=== PATIENT | female | born 1955 | race Caucasian/White ===

== ENCOUNTER 2018-04-03 11:52 | Emergency (ER) | payer SELFPAY ==
[~2018-04-03] VITALS: Ht 154.9 cm; Wt 63.5 kg
[~2018-04-03 11:52] MED LIST: CITALOPRAM HBR10 MG; CLONAZEPAM0.5 MG; COMBIVENT INH14.7 GM; ESTRIOL; METHOCARBAMOL750 MG; PERCOCET 10-651 EACH; VENTOLIN HFA18 GM
--- OUTSIDE RECORDS SUMMARY | 2018-04-03 11:56 | XMS ---
PreManage Notification: LAWRENCE ORLANDO Security Merchant Police Events No recent Security Events currently on file CRITERIA MET - Group Notification - [facility] - Has Care Guidelines CARE PROVIDERS Primary Care Primary Care Current PHONE: Unknown Isaura has no Care Guidelines for this patient. Care History Medical/Surgical 12/05/2017 [facility] - CHW RECEIVED CASE MANAGEMENT CONSULT- HELP PATIENT WITH SETTING UP WITH A PCP. - PATIENT DOES NOT HAVE A PHONE NUMBER LISTED FOR CONTACT- CHW CALLED THE [facility] CONTACT # AND THE NUMBER IS NOT THE PATIENT CONTACT #. - PATIENT NEEDS TO APPLY FOR MEDICAL BENEFITS, ONCE BENEFITS ARE APPLIED FOR CHW CAN HELP PATIENT SET UP WITH A PCP. - CHW WILL SEND PATIENT A NO PCP LETTER. - IF PATIENT IS SEEN IN THE ED PLEASE CONTACT ONOFRE TO HAVE PATIENT APPLY FOR MEDICAL BENEFITS. AND OR REFER PATIENT TO AN ASSISTER AT [facility]. E.D. VISIT COUNT (12 MO.) 2 [facility] TOTAL 2 NOTE: Visits indicate total known visits. ED/UCC VISIT TRACKING (12 MO.) 04/03/2018 11:52 [facility] [place] TYPE: Emergency COMPLAINT: - ABD/FLANK PAIN 12/04/2017 00:17 [facility] [place] TYPE: Emergency COMPLAINT: - MEDICAL CLEARANCE DIAGNOSES: - Pain in right hip - Other acute postprocedural pain - Nicotine dependence, unspecified, uncomplicated - Homelessness INPATIENT VISIT TRACKING (12 MO.) No inpatient visits to display in this time frame [email or web address]
[2018-04-03] MEDS ORDERED: FLOMAX0.4 MG PO (14:13)
[2018-04-03] MEDS ORDERED: PERCOCET 5-3251 EACH PO (14:14)
== END 2018-04-03 14:45 | disposition home or self-care (01) ==
LOC: ED 11:52
DX: R10.9 Unspecified abdominal pain (principal); J45.909 Unspecified asthma, uncomplicated; F17.200 Nicotine dependence, unspecified, uncomplicated
CPT/HCPCS: 74176; 80053; 81001; 85025; 96374; 99284-25; J1885

== ENCOUNTER 2021-12-30 10:29 | Emergency (ER) | payer MEDICARE ==
[~2021-12-30] VITALS: Ht 154.9 cm; Wt 47.6 kg
[~2021-12-30 10:29] MED LIST changes: +FLOMAX0.4 MG PO; +PERCOCET 5-3251 EACH PO
--- OUTSIDE RECORDS SUMMARY | 2021-12-30 10:39 | XMS ---
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 Isaura has no Care Guidelines for this patient. Care History Medical/Surgical 04/04/2018 [facility] - CHW HAD A LONG DISCUSSION WITH PATIENT- PATIENT STATED HER AND HER BOYFRIEND DO NOT KNOW IF THEY WILL BE STAYING IN THE AREA. THEY CURRENTLY RESIDE AT [facility]. - CHW DISCUSSED THE IMPORTANCE OF FOLLOW UP CARE WITH A PCP AND UROLOGIST DR HERNANDEZ. PATIENT CANCELLED APT WITH UROLOGIST ON 04/05/[address] CONDITIONS. PATIENT STATED SHE WOULD RESCHEDULE NEXT WEEK WHEN THE ROADS ARE BETTER. 12/05/2017 [facility] - CHW RECEIVED CASE MANAGEMENT CONSULT- HELP [...] OR REFER PATIENT TO AN ASSISTER AT [facility]. E.D. VISIT COUNT (12 MO.) 1 [facility] TOTAL 1 NOTE: Visits indicate total known visits. ED/UCC VISIT TRACKING (12 MO.) 12/30/2021 10:31 [facility] [place] TYPE: Emergency COMPLAINT: - ABNORMAL LABS INPATIENT VISIT TRACKING (12 MO.) No inpatient visits to display in this time frame [id number]
[2021-12-30] MEDS ORDERED: COMBIVENT RESPIM4 GM INH (10:55)
[2021-12-30] MEDS ORDERED: LOSARTAN POTASS25 MG PO (10:55)
[2021-12-30] MEDS ORDERED: FERRETTS18 MG PO (14:31)
== END 2021-12-30 14:52 | disposition home or self-care (01) ==
LOC: ED 10:29
DX: D64.9 Anemia, unspecified (principal); R63.4 Abnormal weight loss; J45.909 Unspecified asthma, uncomplicated; F17.200 Nicotine dependence, unspecified, uncomplicated; Z79.899 Other long term (current) drug therapy
CPT/HCPCS: 36415; 74177; 80053; 85025; 86850; 86900; 86901; 99284-25; 99406; Q9967

== ENCOUNTER 2022-05-06 15:29 | Emergency (ER) | payer MEDICARE ==
[~2022-05-06] VITALS: Ht 154.9 cm; Wt 41.1 kg
[~2022-05-06 15:29] MED LIST changes: +COMBIVENT RESPIM4 GM INH; +FERRETTS18 MG PO; +LOSARTAN POTASS25 MG PO
--- OUTSIDE RECORDS SUMMARY | 2022-05-06 15:37 | XMS ---
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 Isaura has no Care Guidelines for this patient. Care History Medical/Surgical 04/04/2018 [facility] - CHW HAD A LONG DISCUSSION WITH PATIENT- PATIENT STATED HER AND HER BOYFRIEND DO NOT KNOW IF THEY WILL BE STAYING IN THE AREA. THEY CURRENTLY RESIDE AT [facility]. - CHW DISCUSSED THE IMPORTANCE OF FOLLOW UP CARE WITH A PCP AND UROLOGIST DR HERNANDEZ. PATIENT CANCELLED APT WITH UROLOGIST ON 04/05/[address] CONDITIONS. PATIENT STATED SHE WOULD RESCHEDULE NEXT WEEK WHEN THE ROADS ARE BETTER. 12/05/2017 [facility] - CHW RECEIVED CASE MANAGEMENT CONSULT- HELP [...] OR REFER PATIENT TO AN ASSISTER AT [facility]. E.D. VISIT COUNT (12 MO.) 1 [facility] 2 [facility] TOTAL 3 NOTE: Visits indicate total known visits. 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
[2022-05-06] MEDS ORDERED: TRAZODONE HCL50 MG PO (15:55)
[2022-05-06] MEDS ORDERED: FLOMAX0.4 MG PO (18:41)
[2022-05-06] MEDS ORDERED: CEPHALEXIN500 M1 PO (18:41)
[2022-05-06] MEDS ORDERED: HYDROCODON-ACE1 EA10 PO (18:41)
== END 2022-05-06 19:26 | disposition home or self-care (01) ==
LOC: ED 15:29
DX: N13.2 Hydronephrosis with renal and ureteral calculous obstruction (principal); J45.909 Unspecified asthma, uncomplicated; F17.200 Nicotine dependence, unspecified, uncomplicated; Z79.899 Other long term (current) drug therapy
CPT/HCPCS: 36415; 71260; 72128; 72131; 74177; 80053; 81001; 83690; 84484; 85025; 85060; 87088; 99284-25; 99406; J0696; J1885; J2270; J2405

== ENCOUNTER 2022-05-17 10:15 | Day surgery (SDC) | payer MEDICARE ==
[~2022-05-17] VITALS: Ht 149.9 cm; Wt 41.8 kg
--- NOTE | ~2022-05-17 | OR ---
[facility] [address], [place] [address] Draft DATE OF OPERATION: 05/17/2022 SURGEON: Mildred Hernandez MD PREOPERATIVE DIAGNOSES: 1. A 9 x 6 mm distal left ureteral calculus with associated hydroureteronephrosis.. 2. Recurrent urinary tract infection. POSTOPERATIVE DIAGNOSES: 1. A 9 x 6 mm distal left ureteral calculus with associated hydroureteronephrosis.. 2. Recurrent urinary tract infection. PROCEDURES: 1. Diagnostic cystoscopy with bilateral retrograde pyelogram, left nephroureteroscopy with laser lithotripsy, and basket extraction of stone fragments. 2. Insertion of a 6 x 22 cm double-J ureteral stent into the left collecting system. 3. Urethral dilation using straight sounds from 14-Mauritanian to 28-Mauritanian. ANESTHESIA: General. ESTIMATED BLOOD LOSS: None. COMPLICATIONS: None. SPECIMENS: Fragments of left distal ureteral calculus sent to the lab for stone analysis. DRAINS: A 6 x 22 cm double-J ureteral stent inserted into the left collecting system. INDICATIONS FOR PROCEDURE: Lawrence is a very pleasant 67-year-old female with no prior history of nephrolithiasis, who presented to my clinic a few days ago with a 4-5 month history of anorexia, intermittent low-grade fevers, and back pain. She had been experiencing nonspecific symptoms for a few months and had lost a total of 30 pounds. She recently presented to the emergency department with the above complaints, and she was found to have an active UTI. She also underwent a CT scan, which revealed an obstructing 9 x 6 mm distal left PATIENT NAME: LAWRENCE ORLANDO OPERATIVE REPORT DATE OF : 53 REPORT #: [id number] PHYSICIAN: MILDRED HERNANDEZ MD PCP: ESSENCE FRAUSTO REPORT IS CONFIDENTIAL AND NOT TO BE RELEASED WITHOUT AUTHORIZATION [facility] [address] [place] [id number] Draft ureteral calculus with associated left hydroureteronephrosis. She subsequently immediately referred to dc from the Emergency Department for definitive treatment. OPERATIVE FINDINGS: 1. On cystoscopy, there was no evidence of any suspicious masses, lesions, or stones. Bilateral ureteral orifices are noted to be in their normal anatomic location. 2. The patient was noted to have mild urethral stenosis, and was therefore dilated using straight Sada sounds from 14-Mauritanian to 28-Mauritanian. 3. Bilateral retrograde pyelogram was performed. The left retrograde pyelogram revealed an obvious large filling defect within the left distal ureter. There were no other obvious filling defects along the remainder of the ureter or kidney. There was some mild calyceal blunting noted on the left side. The right retrograde pyelogram was normal. 4. Semi-rigid left ureteroscopy revealed the presence of a large stone in the distal left ureter consistent with the known 9 mm stone. The stone was fragmented using a holmium laser at 8 and 0.8 settings with a 270 micron fiber. The stone fragmented easily and 100% of the stone fragments were extracted from the left ureter. 5. Flexible left nephroscopy was performed, which revealed no evidence of any residual calculi within the left renal pelvis or within the left proximal ureter. 6. A 6 x 22 cm double-J ureteral stent was inserted into the left ureter under direct visualization without difficulty. DESCRIPTION OF PROCEDURE: After informed consent was obtained, the patient was taken back to the operating room, where she was transferred from the [facility] to the operating room table and general anesthesia was induced. She was then placed in the dorsal lithotomy position and her genitalia prepped and draped in sterile fashion. Examination of her urethra revealed urethral stenosis, so she was dilated using straight sounds from 14-Mauritanian to 28-Mauritanian without difficulty. Using a 30-degree lens on a 22.5-Mauritanian introducer, rigid cystoscope was inserted through the urethra and into her bladder under direct visualization. Panendoscopic views of the bladder were then obtained. Please see above findings. Attention was first turned to the left ureteral orifice. I advanced a cone-tipped catheter to the left ureteral orifice and a left retrograde pyelogram was performed. Please see above findings. The same procedure was done on the right side. Please see above findings. I then removed the cone-tipped catheter and along with the cystoscope. I advanced a semi-rigid ureteroscope with the assistance of a Sensor wire through the left ureteral orifice and up into the distal left ureter. I immediately noted the large 9 mm stone in the left ureter. The stone was fragmented using a holmium laser and a 270 micron fiber at 8 and 0.8 settings without difficulty. Once the stone was fragmented, I extracted 99% of the stone burden from the left ureter. The rest of the stone burden was in a dust form. I then removed the semi-rigid ureteroscope and reinserted a cystoscope, where I cannulated the left ureter with a 0.035 Sensor wire. PATIENT NAME: LAWRENCE ORLANDO OPERATIVE REPORT DATE OF : 53 REPORT #: [id number] PHYSICIAN: MILDRED HERNANDEZ MD PCP: ESSENCE FRAUSTO REPORT IS CONFIDENTIAL AND NOT TO BE RELEASED WITHOUT AUTHORIZATION [address] [address] Draft Over the wire, I passed a 10/12 ureteral access sheath into the left collecting system. Repeat retrograde pyelogram confirmed good placement of the sheath. I then passed a flexible ureteroscope through the sheath and into the left renal pelvis. A complete diagnostic left nephroscopy was performed along with a left proximal and mid ureteroscopy. I did not appreciate any additional stones in either of these areas. I then withdrew the flexible ureteroscope and then passed another Sensor wire through the sheath and into the left collecting system. The sheath was then removed fully intact. Over the wire, I passed a 6 x 22 cm double-J ureteral stent into the left collecting system under direct visualization. The stent passed quite easily. The stent was placed with a string attached. The string was secured to the patient's suprapubic area. The patient's bladder was then drained and the cystoscope was removed. The procedure was then terminated. The patient tolerated the procedure well without any complication. She will now be transferred to the Postanesthesia Care Unit in stable condition. DISPOSITION: I discussed the details of the patient's surgery with her friend and answered all of her questions. She was notified that 100% of stone burden was removed from the patient's left collecting system today and she tolerated the surgery well. There is now a ureteral stent in place with a string attached. The patient will be able to remove her indwelling ureteral stent using this string attached in a total of 7 days. She will be sent home today on Macrobid 100 mg p.o. b.i.d. for a total seven days, along with oxycodone 5 mg one tablet p.o. q.6 hours p.r.n. pain, dispense #30. She has been scheduled to return to clinic to see me in late June, and we will discuss the results of her stone analysis at that time. MD MELISSA Estes/SCOTT /[id number] Copies: ~ PATIENT NAME: LAWRENCE ORLANDO OPERATIVE REPORT DATE OF : 53 REPORT #: [id number] PHYSICIAN: MILDRED HERNANDEZ MD PCP: ESSENCE FRAUSTO REPORT IS CONFIDENTIAL AND NOT TO BE RELEASED WITHOUT AUTHORIZATION
[~2022-05-17 10:15] MED LIST changes: +CEPHALEXIN500 M1 PO; +HYDROCODON-ACE1 EA10 PO; +TRAZODONE HCL50 MG PO
[2022-05-17] MEDS ORDERED: LEVOFLOXACIN500 MG PO (10:40)
--- NOTE | 2022-05-17 13:05 | NUR ---
05/17/22 1305 Justyna Hung 1303 PATIENT ARRIVES TO PACU SLEEPING. AWAKENS WITH REPEATED VERBAL STIMULI. RESP EVEN AND UNLAOBRED, ROOM AIR SATS >94%. PATIENT SLEEPING WHEN NOT STIMULATED.
--- NOTE | 2022-05-17 15:01 | NUR ---
PT WAS ABLE TO EAT CRACKERS AND DRINK SOME WATER. TOLERATED WELL. PT REPORTS RIGHT SIDE/ BACK PAIN THAT SHE RATES A 6/10. PT CONCERNED IF DR. HERNANDEZ SAW ANYTHING WITH THE "DYE SHE SHOT UP INTO THE RIGHT SIDE". DR. HERNANDEZ CONTACTED AND STATES THE RIGHT SIDE "LOOKED CLEAR". PT AND PT'S FAMILY UPDATED. PROVIDED PAIN MEDICATION PER HER REQUEST.
--- NOTE | 2022-05-17 15:12 | NUR ---
PT PLACED BACK ON 2L OF OXYGEN VIA NC HER OXYGEN SAT DROPS TO 87% ON RA WHEN AT REST. PT ALSO ENCOURAGED TO COUGH AND DEEP BREATHE. PT IS ABLE TO DO THIS AND OXYGEN SAT INCREASE TO 96% WITH THESE INTERVENTIONS. CONTINUOUS PULSE OX LEFT IN PLACE. PT'S IN LAWS TOOK PRESCRIPTION TO HER PHARMACY. BED RAILS UP X2, PT PROVIDED WATER, CALL LIGHT PROVIDED.
[2022-05-17] MEDS ORDERED: MACROBID 100 M100 MG PO (15:21)
[2022-05-17] MEDS ORDERED: OXYCODONE HCL5 MG PO (15:22)
--- NOTE | 2022-05-17 15:50 | NUR ---
PT TAKEN TO THE RESTROOM BY FILOMENA CORTEZ RN. PT ASSISTED BACK TO BED. OXYGEN TITRATED OFF. PULSE OX LEFT IN PLACE. OXYGEN SAT MID 90'S ON RA.
--- NOTE | 2022-05-17 16:12 | NUR ---
PT SIPPING ON COFFEE. TOLERATING WELL. PT AMBULATED TO THE RESTROOM AND BACK. CONTINUOUS PULSE OX PLACED. OXYGEN SAT LOW 90'S ON RA. PT ENCOURAGED TO COUGH AND DEEP BREATHE. OXYGEN SAT INCREASED TO THE HIGH 90'S WITH THIS. CALL LIGHT PROVIDED. BED RAILS UP X1.
--- NOTE | 2022-05-17 16:20 | NUR ---
1405: PT RETURNS TO UNIT VIA STRETCHER FROM PACU. DROWSY ON ARRIVAL. VSS, RESP EVEN AND UNLABORED. O2 SATS STABLE ON 2L VIA NC. PT WAKES AND ANSWERS QUESTIONS APPROPRIATELY WHEN STIMULATED. DENIES NAUSEA. REPORTS 6/10 PAIN AT THIS TIME. DISCUSSED PAIN MANAGEMENT PLAN AND PT VOICES UNDERSTANDING. ICE WATER AND CRACKERS PROVIDED. NO NEEDS VOICED AT THIS TIME, CALL LIGHT WITHIN REACH
--- NOTE | 2022-05-17 16:43 | NUR ---
PT AMBULATED TO THE RESTROOM AND BACK TO BED. TOLERATED WELL. PT'S OXYGEN SAT 93% ON RA. PT ENCOURAGED TO COUGH AND DEEP BREATHE. OXYGEN SAT IMPROVED TO 97% ON RA. PT IS STATING SHE WANTS TO STAY AT HOME TONIGHT BY HERSELF. PT'S IN LAWS STATE SHE IS STAYING WITH THEM TONIGHT. EXPLAINED TO PT THE IMPORTANCE OF HER STAYING WITH SOMEONE TONIGHT THAT CAN CHECK ON HER. PT STATES UNDERSTANDING.
--- NOTE | 2022-05-17 17:15 | NUR ---
PT AMBULATED TO THE RESTROOM AND BACK TO HER ROOM. PT TOLERATED WELL. PT REPORTS NO DIZZINESS OR NAUSEA. PT STATES HER PAIN IS A 4/10 ON HER RIGHT SIDE/ BACK. PT STATES SHE FEELS LIKE SHE IS READY TO GO HOME. PT'S MOTHER IN LAW REPORTS SHE IS WALKING MUCH BETTER THEN BEFORE SURGERY. PT DRESSING HERSELF WITH THE MOTHER IN LAW IN THE ROOM. PT PROVIDED MORE ICE WATER WELL.
--- NOTE | 2022-05-17 17:22 | NUR ---
DC INSTRUCTIONS PROVIDED TO PT AND PT'S IN LAWS WITH PT APPROVAL. ALL PARTIES STATE UNDERSTANDING OF DC INSTRUCTIONS. PT REPORTS HER PAIN TO BE TOLERABLE FOR HER AT 4/10, DENIES NAUSEA. PT WAS ABLE TO DRESS HERSELF. TELLING JOKES AND STORIES IN THE ROOM. PT AMBULATES TO THE WHEELCHAIR AND IS TAKEN TO THE FRONT OF THE HOSPITAL WITH HER IN LAWS. PT AND FAMILY THANKFUL FOR THE CARE.
== END 2022-05-17 17:22 | disposition home or self-care (01) ==
LOC: DS 10:15
PROVIDERS: ATTEND Urology
PROC: 0TC78ZZ Extirpation of Matter from Left Ureter, Via Natural or Artificial Opening Endoscopic (ICD-10-PCS; principal; 2022-05-17 12:00)
DX: N13.2 Hydronephrosis with renal and ureteral calculous obstruction (principal); F17.200 Nicotine dependence, unspecified, uncomplicated
CPT/HCPCS: 74420; 81001; 82365; C1769; C2617; J0131; J0696; J1100; J1885; J2001; J2405; J2704; J3010; J7121; Q9967

== ENCOUNTER 2022-05-30 14:15 | Emergency (ER) | payer MEDICARE ==
[~2022-05-30] VITALS: Ht 149.9 cm; Wt 36.8 kg
[~2022-05-30 14:15] MED LIST changes: +LEVOFLOXACIN500 MG PO; +MACROBID 100 M100 MG PO; +OXYCODONE HCL5 MG PO
--- OUTSIDE RECORDS SUMMARY | 2022-05-30 14:18 | XMS ---
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 Isaura has no Care Guidelines for this patient. Care History Medical/Surgical 04/04/2018 [facility] - CHW HAD A LONG DISCUSSION WITH PATIENT- PATIENT STATED HER AND HER BOYFRIEND DO NOT KNOW IF THEY WILL BE STAYING IN THE AREA. THEY CURRENTLY RESIDE AT [facility]. - CHW DISCUSSED THE IMPORTANCE OF FOLLOW UP CARE WITH A PCP AND UROLOGIST DR HERNANDEZ. PATIENT CANCELLED APT WITH UROLOGIST ON 04/05/[address]. PATIENT STATED SHE WOULD RESCHEDULE NEXT WEEK WHEN THE ROADS ARE BETTER. 12/05/2017 [facility] - CHW RECEIVED CASE MANAGEMENT CONSULT- HELP [...] OR REFER PATIENT TO AN ASSISTER AT [facility]. E.D. VISIT COUNT (12 MO.) 1 [facility] 3 [facility] TOTAL 4 NOTE: Visits indicate total known visits. ED/UCC VISIT TRACKING (12 MO.) 05/30/2022 14:16 [facility] [place] TYPE: Emergency COMPLAINT: - POSSIBLE OVERDOSE 05/06/2022 15:29 [facility] [place] TYPE: Emergency COMPLAINT: - FLANK PAIN DIAGNOSES: - Other shelter (current) drug therapy - Hydronephrosis with renal and ureteral calculous obstruction - Nicotine dependence, cigarettes, uncomplicated - Unspecified abdominal pain - Nicotine dependence, unspecified, uncomplicated - Unspecified asthma, uncomplicated 03/22/2022 15:23 [facility] [place] TYPE: Emergency DIAGNOSES: - ABNORMAL LABS - Hematuria, unspecified - Urinary tract infection, site not specified - Thrombocytosis, unspecified 12/30/2021 10:[address] [facility] [place] TYPE: Emergency COMPLAINT: - ABNORMAL LABS DIAGNOSES: - Nicotine dependence, cigarettes, uncomplicated - Unspecified asthma, uncomplicated - Abnormal weight loss - Other shelter (current) drug therapy - Nicotine dependence, unspecified, uncomplicated - Anemia, unspecified INPATIENT VISIT TRACKING (12 MO.) No inpatient visits to display in this time frame [id number]
[2022-05-30 18:43] VITALS: BP 183/100
== END 2022-05-30 18:44 | disposition home or self-care (01) ==
LOC: ED 14:15
DX: F11.93 Opioid use, unspecified with withdrawal (principal); F17.200 Nicotine dependence, unspecified, uncomplicated; Z79.899 Other long term (current) drug therapy
CPT/HCPCS: 36415; 80053; 83735; 85025; 85060; A9270; J2405; J7121

== ENCOUNTER 2022-10-23 18:36 | Emergency (ER) | payer MEDICARE ==
[~2022-10-23] VITALS: Ht 149.9 cm; Wt 44.9 kg
[~2022-10-23 18:36] MED LIST changes: +CHLORDIAZEPOXID25 MG PO; +LIDOCAINE HCL100 ML MT; +NYSTATIN100000 UN1 PO; +ONDANSETRON HCL4 MG PO
--- OUTSIDE RECORDS SUMMARY | 2022-10-23 18:38 | XMS ---
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 Isaura has no Care Guidelines for this patient. Care History Medical/Surgical 04/04/2018 [facility] - CHW HAD A LONG DISCUSSION WITH PATIENT- PATIENT STATED HER AND HER BOYFRIEND DO NOT KNOW IF THEY WILL BE STAYING IN THE AREA. THEY CURRENTLY RESIDE AT [facility]. - CHW DISCUSSED THE IMPORTANCE OF FOLLOW UP CARE WITH A PCP AND UROLOGIST DR HERNANDEZ. PATIENT CANCELLED APT WITH UROLOGIST ON 04/05/[address] CONDITIONS. PATIENT STATED SHE WOULD RESCHEDULE NEXT WEEK WHEN THE ROADS ARE BETTER. 12/05/2017 [facility] - CHW RECEIVED CASE MANAGEMENT [...] OR REFER PATIENT TO AN ASSISTER AT [facility]. E.D. VISIT COUNT (12 MO.) [address] TOTAL 8 NOTE: Visits indicate total known visits. ED/UCC VISIT TRACKING (12 MO.) 10/23/2022 18:37 [facility] [place] TYPE: Emergency COMPLAINT: - INTOXICATED 10/20/2022 14:38 [facility] [place] TYPE: Emergency COMPLAINT: - WEAKNESS DIAGNOSES: - Acute pharyngitis, unspecified - Alcohol dependence with unspecified alcohol-induced disorder - Candidal stomatitis - Nicotine dependence, unspecified, uncomplicated - Other residential (current) drug therapy - Unspecified asthma, uncomplicated 10/13/2022 16:54 [facility] [place] TYPE: Emergency COMPLAINT: - SORE THROAT 10/01/2022 20:05 [facility] [place] TYPE: Emergency COMPLAINT: - ALCOHOL WITHDRAWAL DIAGNOSES: - Alcohol abuse with withdrawal, unspecified - Alcohol dependence with withdrawal, unspecified - Nicotine dependence, unspecified, uncomplicated - Other long term care social worker (current) drug therapy 05/30/2022 14:[address] [facility] [place] TYPE: Emergency COMPLAINT: - POSSIBLE OVERDOSE DIAGNOSES: - Nicotine dependence, unspecified, uncomplicated - Opioid use, unspecified with withdrawal - Other long term care social worker (current) drug therapy 05/06/2022 15:[address] [facility] [place] TYPE: Emergency COMPLAINT: - FLANK PAIN DIAGNOSES: - Hydronephrosis with renal and ureteral calculous obstruction - Nicotine dependence, cigarettes, uncomplicated - Nicotine dependence, unspecified, uncomplicated - Other residential (current) drug therapy - Unspecified abdominal pain - Unspecified asthma, uncomplicated 03/22/2022 15:23 [facility] [place] TYPE: Emergency DIAGNOSES: - Hematuria, unspecified - Thrombocytosis, unspecified - Urinary tract infection, site not specified - ABNORMAL LABS 12/30/2021 10:31 [facility] [place] TYPE: Emergency COMPLAINT: - ABNORMAL LABS DIAGNOSES: - Abnormal weight loss - Anemia, unspecified - Nicotine dependence, cigarettes, uncomplicated - Nicotine dependence, unspecified, uncomplicated - Other residential (current) drug therapy - Unspecified asthma, uncomplicated INPATIENT VISIT TRACKING (12 MO.) No inpatient visits to display in this time frame [id number]
[2022-10-23 19:19] VITALS: BP 128/88
== END 2022-10-23 19:19 | disposition home or self-care (01) ==
LOC: ED 18:36
DX: F10.229 Alcohol dependence with intoxication, unspecified (principal); F17.200 Nicotine dependence, unspecified, uncomplicated; J45.909 Unspecified asthma, uncomplicated; Z79.899 Other long term (current) drug therapy
CPT/HCPCS: 96374; 99284-25; J2405; J7030

== ENCOUNTER 2022-10-25 17:00 | Emergency (ER) | payer MEDICARE ==
[~2022-10-25] VITALS: Ht 149.9 cm; Wt 45.3 kg
--- OUTSIDE RECORDS SUMMARY | 2022-10-25 17:03 | XMS ---
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 Isaura has no Care Guidelines for this patient. Care History Medical/Surgical 04/04/2018 [facility] - CHW HAD A LONG DISCUSSION WITH PATIENT- PATIENT STATED HER AND HER BOYFRIEND DO NOT KNOW IF THEY WILL BE STAYING IN THE AREA. THEY CURRENTLY RESIDE AT [facility]. - CHW DISCUSSED THE IMPORTANCE OF FOLLOW UP CARE WITH A PCP AND UROLOGIST DR HERNANDEZ. PATIENT CANCELLED APT WITH UROLOGIST ON 04/05/[address]. PATIENT STATED SHE WOULD RESCHEDULE NEXT WEEK WHEN THE ROADS ARE BETTER. 12/05/2017 [facility] - CHW RECEIVED CASE MANAGEMENT CONSULT- HELP PATIENT WITH SETTING UP WITH A PCP. - PATIENT DOES NOT HAVE A PHONE NUMBER LISTED FOR CONTACT- CHW CALLED THE [facility] # AND THE NUMBER IS NOT [...] OR REFER PATIENT TO AN ASSISTER AT [facility]. E.D. VISIT COUNT (12 MO.) [address] TOTAL 9 NOTE: Visits indicate total known visits. ED/UCC VISIT TRACKING (12 MO.) 10/25/2022 17:01 [facility] TYPE: Emergency COMPLAINT: - SUICIDAL IDEATIONS 10/23/2022 18:37 [facility] TYPE: Emergency COMPLAINT: - INTOXICATED 10/20/2022 14:38 [facility] TYPE: Emergency COMPLAINT: - WEAKNESS DIAGNOSES: - Acute pharyngitis, unspecified - Alcohol dependence with unspecified alcohol-induced disorder - Candidal stomatitis - Nicotine dependence, unspecified, uncomplicated - Other skilled nursing (current) drug therapy - Unspecified asthma, uncomplicated 10/13/2022 16:54 [facility] TYPE: Emergency COMPLAINT: - SORE THROAT 10/01/2022 20:05 [facility] TYPE: Emergency COMPLAINT: - ALCOHOL WITHDRAWAL DIAGNOSES: - Alcohol abuse with withdrawal, unspecified - Alcohol dependence with withdrawal, unspecified - Nicotine dependence, unspecified, uncomplicated - Other skilled nursing (current) drug therapy 05/30/2022 14:16 [facility] [place] TYPE: Emergency COMPLAINT: - POSSIBLE OVERDOSE DIAGNOSES: - Nicotine dependence, unspecified, uncomplicated - Opioid use, unspecified with withdrawal - Other skilled nursing (current) drug therapy 05/06/2022 15:29 [facility] [place] TYPE: Emergency COMPLAINT: - FLANK PAIN DIAGNOSES: - Hydronephrosis with renal and ureteral calculous obstruction - Nicotine dependence, cigarettes, uncomplicated - Nicotine dependence, unspecified, uncomplicated - Other skilled nursing (current) drug therapy - Unspecified abdominal pain - Unspecified asthma, uncomplicated 03/22/2022 15:23 [facility] [place] TYPE: Emergency DIAGNOSES: - Hematuria, unspecified - Thrombocytosis, unspecified - Urinary tract infection, site not specified - ABNORMAL LABS 12/30/2021 10:31 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
[2022-10-25 18:46] LABS: BASOPHILS 2.2 % (0-2); EOSINOPHILS 1.9 % (0-6); HEMATOCRIT 35.1 % (35.0-50.0); HEMOGLOBIN 11.3 g/dL (12.0-18.0); LYMPHOCYTES 56.8 % (24-44); MCH 30.8 (27-36); MCHC 32.1 g/dl (30-36); MCV 95.9 fl (81-99); MONOCYTES 13.2 % (0-12); NEUTROPHILS 25.9 % (39-80); PLATELET COUNT 156 K/uL (140-440); RBC 3.66 M/ul (4.3-5.7); RDW 21.4 (10.5-15.0)
[2022-10-25 19:08] LABS: ACETAMINOPHEN 0 ug/mL (10-30); ALBUMIN 3.6 g/dL (3.4-5.0); ALBUMIN/GLOBULIN RATIO 1.06 (1.1-2.4); ALKALINE PHOSPHATASE 119 U/L (46-116); ALT (SGPT) 17 U/L (14-59); ANION GAP 12.6 (7-21); AST (SGOT) 36 U/L (15-37); BILIRUBIN, TOTAL 0.3 ng/dL (0.2-1.0); BUN/CREATININE RATIO 10.16 (6.0-28.6); CALCIUM 7.9 mg/dL (8.5-10.1); CARBON DIOXIDE 29 mmol/L (21-32); CHLORIDE 104 mmol/L (98-107); CREATININE, SERUM 0.59 mg/dL (0.55-1.02); GLOMERULAR FILTRATION RATE,EST 98 mL/min (>60); POTASSIUM 3.6 mmol/L (3.5-5.1); SALICYLATE 2.1 mg/dL (2.8-20.0); UREA NITROGEN 6 mg/dL (7-18)
[2022-10-25 19:15] LABS: ALCOHOL, MEDICAL 328 ng/dL (<3)
[2022-10-26 05:37] LABS: BILIRUBIN, URINE NEGATIVE (negative); BLOOD/HGB, URINE MODERATE (Negative); KETONE, URINE NEGATIVE (Negative); LEUK ESTERASE, URINE NEGATIVE (negative); NITRITE, URINE NEGATIVE (negative); PH, URINE 5.5 (5-7)
[2022-10-26 05:42] LABS: AMPHETAMINES, UR NEGATIVE (NEGATIVE); BARBITURATES, UR NEGATIVE (NEGATIVE); BENZODIAZEPINES, UR POSITIVE (NEGATIVE); BUPRENORPHINE,UR NEGATIVE (NEGATIVE); COCAINE, UR NEGATIVE (NEGATIVE); MARIJUANA (THC), UR NEGATIVE (NEGATIVE); MDMA, UR NEGATIVE (NEGATIVE); METHADONE, UR NEGATIVE (NEGATIVE); METHAMPHETAMINE, UR NEGATIVE (NEGATIVE); OPIATES, UR NEGATIVE (NEGATIVE); OXYCODONE, UR NEGATIVE (NEGATIVE); PHENCYCLIDINE, UR NEGATIVE (NEGATIVE); TRICYCLIC ANTIDEPRESSANT, UR NEGATIVE (NEGATIVE)
[2022-10-26 05:43] LABS: BACTERIA, URINE RARE /hpf (negative); CRYSTALS, URINE NONE SEEN (0-1+)
[2022-10-26 05:44] LABS: CASTS, URINE NONE SEEN \\lpf; REFLEX CULTURE, URINE No (No)
[2022-10-26 05:45] LABS: EPITHELIAL CELLS, URINE SQUAMOUS 1+ /lpf (0-1+)
[2022-10-27 11:49] LABS: BASOPHILS 0.8 % (0-2); EOSINOPHILS 2.1 % (0-6); HEMATOCRIT 35.5 % (35.0-50.0); HEMOGLOBIN 11.5 g/dL (12.0-18.0); LYMPHOCYTES 29.3 % (24-44); MCH 31.3 (27-36); MCHC 32.4 g/dl (30-36); MCV 96.4 fl (81-99); MONOCYTES 11.9 % (0-12); NEUTROPHILS 55.9 % (39-80); PLATELET COUNT 153 K/uL (140-440); RBC 3.68 M/ul (4.3-5.7); RDW 21.2 (10.5-15.0)
[2022-10-27 11:59] LABS: ALBUMIN 3.7 g/dL (3.4-5.0); ALBUMIN/GLOBULIN RATIO 1.16 (1.1-2.4); ANION GAP 14.8 (7-21); BILIRUBIN, TOTAL 0.7 ng/dL (0.2-1.0); BUN/CREATININE RATIO 9.43 (6.0-28.6); CALCIUM 8.9 mg/dL (8.5-10.1); CREATININE, SERUM 0.53 mg/dL (0.55-1.02); POTASSIUM 3.8 mmol/L (3.5-5.1); PROTEIN, TOTAL 6.9 g/dL (6.4-8.2)
[2022-10-27 12:17] LABS: INFLUENZA B NAA NEGATIVE (NEGATIVE); RESPIRATORY SYNCYTIAL VIR NAA NEGATIVE (NEGATIVE)
[2022-10-27] MEDS ORDERED: CHLORDIAZEPOXID25 MG PO (12:18)
[2022-10-27 13:19] VITALS: BP 151/89
== END 2022-10-27 13:23 | disposition home or self-care (01) ==
LOC: ED 17:00
PROVIDERS: Emergency Medicine
DX: R45.851 Suicidal ideations (principal); F10.229 Alcohol dependence with intoxication, unspecified; J45.909 Unspecified asthma, uncomplicated; F17.210 Nicotine dependence, cigarettes, uncomplicated; Z79.899 Other long term (current) drug therapy
CPT/HCPCS: 36415; 80053; 81001; 84443; 85025; 87502; 96374; 96375; 96376; 99285-25; C9803; G0480; J2060; J3411; J7030; U0002

== ENCOUNTER 2022-10-29 16:54 | Emergency (ER) | payer MEDICARE ==
[~2022-10-29] VITALS: Ht 149.9 cm; Wt 45.3 kg
--- OUTSIDE RECORDS SUMMARY | ~2022-10-29 | XMS | Continuity of Care Document ---
Demographics + + + | Address | [address] | | | [place] [address] | + + + | Preferred Language | Unknown | + + + | Marital Status | | + + + | Yazdanism Affiliation | Unknown | + + + | Race | White | + + + | Ethnic Group | Not or | + + + Author + + + | Author | [facility] | + + + | Organization | [facility] | + + + | Address | [address] | | | [place], [place] [address] | + + + | Phone | | + + + Care Team Providers + + + + | Care Risk Management Director Name | Role | Phone | + + + + Unavailable | Unavailable | + + + + Allergies No information. Encounters No information. Functional Status No information. Immunizations No information. Medications No information. Problems + + + + | date | description | facility | + + + + | 2022-09-28 20:30 | UNSPECIFIED ABDOMINAL PAIN | [facility] | | | | | + + + + | 2022-10-01 20:05 | ALCOHOL DEPENDENCE WITH | [facility] | | | WITHDRAWAL, UNSPECIFIED | | + + + + | 2022-10-01 20:05 | NICOTINE DEPENDENCE, | [facility] | | | UNSPECIFIED, UNCOMPLICATED | | + + + + | 2022-10-01 20:05 | OTHER CARE HOME (CURRENT) | [facility] | | | DRUG THERAPY | | + + + + | 2022-10-19 11:00 | UNSPECIFIED ABDOMINAL PAIN | [facility] | | | | | + + + + | 2022-10-20 14:38 | CANDIDAL STOMATITIS | [facility] | + + + + | 2022-10-20 14:38 | ALCOHOL DEPENDENCE WITH | [facility] | | | UNSPECIFIED ALCOHOL-INDUCE | | + + + + | 2022-10-20 14:38 | NICOTINE DEPENDENCE, | [facility] | | | UNSPECIFIED, UNCOMPLICATED | | + + + + | 2022-10-20 14:38 | ACUTE PHARYNGITIS, | [facility] | | | UNSPECIFIED | | + + + + | 2022-10-20 14:38 | UNSPECIFIED ASTHMA, | [facility] | | | UNCOMPLICATED | | + + + + | 2022-10-20 14:38 | 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) | [facility] | | | DRUG THERAPY | | + + + + | 2022-10-23 18:37 | ALCOHOL ABUSE, | [facility] | | | UNCOMPLICATED | | + + + + | 2022-10-23 18:37 | ALCOHOL ABUSE WITH | [facility] | | | INTOXICATION, UNSPECIFIED | | + + + + | 2022-10-23 18:37 | ALCOHOL DEPENDENCE WITH | [facility] | | | INTOXICATION, UNSPECIFIED | | + + + + | 2022-10-23 18:37 | NICOTINE DEPENDENCE, | [facility] | | | UNSPECIFIED, UNCOMPLICATED | | + + + + | 2022-10-23 18:37 | UNSPECIFIED ASTHMA, | [facility] | | | UNCOMPLICATED | | + + + + | 2022-10-23 18:37 | 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 Results/Labs No information. Social History +--------+ + + | date | description | facility | +--------+ + + Vital Signs No information."
--- OUTSIDE RECORDS SUMMARY | ~2022-10-29 | XMS | Continuity of Care Document ---
Demographics + + + | Address | [address] | | | [place] [address] | + + + | Preferred Language | Unknown | + + + | Marital Status | | + + + | Scientologist Affiliation | Unknown | + + + | Race | White | + + + | Ethnic Group | Not or | + + + Author + + + | Author | [facility] | + + + | Organization | [facility] | + + + | Address | [address] | | | [place], [place] [address] | + + + | Phone | | + + + Care Team Providers + + + + | Care Central Office Trouble Shooter Name | Role | Phone | + [...] + + | 2022-10-01 20:05 | OTHER ALF (CURRENT) | [facility] | | | DRUG [...] + + | 2022-10-20 14:38 | 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 Results/Labs No information. Social History +--------+ + + | date | description | facility | +--------+ + + Vital Signs No information."
--- OUTSIDE RECORDS SUMMARY | 2022-10-29 16:58 | XMS ---
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 - 2 Visits in 30 Days CARE PROVIDERS There are no care providers on record at this time. Isaura has no Care Guidelines for this patient. Care History Medical/Surgical 04/04/2018 [facility] - CHW HAD A LONG DISCUSSION WITH PATIENT- PATIENT STATED HER AND HER BOYFRIEND DO NOT KNOW IF THEY WILL BE STAYING IN THE AREA. THEY CURRENTLY RESIDE AT [facility]. - CHW DISCUSSED THE IMPORTANCE OF FOLLOW UP CARE WITH A PCP AND UROLOGIST DR HERNANDEZ. PATIENT CANCELLED APT WITH UROLOGIST ON 04/05/[address]. PATIENT STATED SHE WOULD RESCHEDULE NEXT WEEK WHEN THE ROADS ARE BETTER. 12/05/2017 [facility] - CHW RECEIVED CASE MANAGEMENT CONSULT- [...] OR REFER PATIENT TO AN ASSISTER AT [facility]. E.D. VISIT COUNT (12 MO.) [address] TOTAL 10 NOTE: Visits indicate total known visits. 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 - Suicidal ideations - Unspecified asthma, uncomplicated 10/23/2022 18:37 [facility] TYPE: Emergency COMPLAINT: - INTOXICATED DIAGNOSES: - Alcohol abuse with intoxication, unspecified - Alcohol abuse, uncomplicated - Alcohol dependence with intoxication, unspecified - Nicotine dependence, unspecified, uncomplicated - Other nursing home (current) drug therapy - Unspecified asthma, uncomplicated 10/20/2022 14:38 [facility] TYPE: Emergency COMPLAINT: - WEAKNESS DIAGNOSES: - Acute pharyngitis, unspecified - Alcohol dependence with unspecified alcohol-induced disorder - Candidal stomatitis - Nicotine dependence, unspecified, uncomplicated - 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 - Unspecified asthma, uncomplicated 10/13/2022 16:54 [facility] TYPE: Emergency COMPLAINT: - SORE THROAT 10/01/2022 20:05 [facility] TYPE: Emergency COMPLAINT: - ALCOHOL WITHDRAWAL DIAGNOSES: - Alcohol abuse with withdrawal, unspecified - Alcohol dependence with withdrawal, unspecified - Nicotine dependence, unspecified, uncomplicated - Other nursing home (current) drug therapy 05/30/2022 14:16 [facility] TYPE: Emergency COMPLAINT: - POSSIBLE OVERDOSE DIAGNOSES: - Nicotine dependence, unspecified, uncomplicated - Opioid use, unspecified with withdrawal - Other nursing home (current) drug therapy 05/06/2022 15:29 [facility] [place] TYPE: Emergency COMPLAINT: - FLANK PAIN DIAGNOSES: - Hydronephrosis with renal and ureteral calculous obstruction - Nicotine dependence, cigarettes, uncomplicated - Nicotine dependence, unspecified, uncomplicated - Other nursing home (current) drug therapy - Unspecified abdominal pain - Unspecified asthma, uncomplicated 03/22/2022 15:23 [facility] [place] TYPE: Emergency DIAGNOSES: - Hematuria, unspecified - Thrombocytosis, unspecified - Urinary tract infection, site not specified - ABNORMAL LABS 12/30/2021 10:[address] [facility] [place] TYPE: Emergency COMPLAINT: - ABNORMAL LABS DIAGNOSES: - Abnormal weight loss - Anemia, unspecified - Nicotine dependence, cigarettes, uncomplicated - Nicotine dependence, unspecified, uncomplicated - Other nursing home (current) drug therapy - Unspecified asthma, uncomplicated INPATIENT VISIT TRACKING (12 MO.) No inpatient visits to display in this time frame [email or web address]
[2022-10-29 17:25] LABS: AMPHETAMINES, UR NEGATIVE (NEGATIVE); BARBITURATES, UR NEGATIVE (NEGATIVE); BENZODIAZEPINES, UR NEGATIVE (NEGATIVE); COCAINE, UR NEGATIVE (NEGATIVE); MARIJUANA (THC), UR NEGATIVE (NEGATIVE); METHADONE, UR NEGATIVE (NEGATIVE); METHAMPHETAMINE, UR NEGATIVE (NEGATIVE); OPIATES, UR NEGATIVE (NEGATIVE); PHENCYCLIDINE, UR NEGATIVE (NEGATIVE); TRICYCLIC ANTIDEPRESSANT, UR NEGATIVE (NEGATIVE)
[2022-10-29 17:26] LABS: BUPRENORPHINE,UR NEGATIVE (NEGATIVE); MDMA, UR NEGATIVE (NEGATIVE); OXYCODONE, UR NEGATIVE (NEGATIVE)
[2022-10-29 17:46] LABS: BASOPHILS 0.9 % (0-2); EOSINOPHILS 4.2 % (0-6); HEMATOCRIT 32.9 % (35.0-50.0); HEMOGLOBIN 10.4 g/dL (12.0-18.0); LYMPHOCYTES 50.3 % (24-44); MCH 31.1 (27-36); MCHC 31.7 g/dl (30-36); MCV 98.4 fl (81-99); MONOCYTES 14.7 % (0-12); NEUTROPHILS 29.9 % (39-80); PLATELET COUNT 175 K/uL (140-440); RBC 3.35 M/ul (4.3-5.7); RDW 22.3 (10.5-15.0)
[2022-10-29 18:18] LABS: ACETAMINOPHEN 0 ug/mL (10-30); ALBUMIN 3.6 g/dL (3.4-5.0); ALBUMIN/GLOBULIN RATIO 1.06 (1.1-2.4); ALKALINE PHOSPHATASE 101 U/L (46-116); ALT (SGPT) 16 U/L (14-59); ANION GAP 13.8 (7-21); AST (SGOT) 29 U/L (15-37); BILIRUBIN, TOTAL 0.2 ng/dL (0.2-1.0); BUN/CREATININE RATIO 21.56 (6.0-28.6); CALCIUM 8.4 mg/dL (8.5-10.1); CARBON DIOXIDE 26 mmol/L (21-32); CHLORIDE 110 mmol/L (98-107); CREATININE, SERUM 0.51 mg/dL (0.55-1.02); GLOMERULAR FILTRATION RATE,EST 102 mL/min (>60); POTASSIUM 3.8 mmol/L (3.5-5.1); SALICYLATE 1.8 mg/dL (2.8-20.0); TSH, 3RD GENERATION 0.992 uIU/mL (0.358-3.740); UREA NITROGEN 11 mg/dL (7-18)
[2022-10-29 18:19] LABS: AMPHETAMINES, UR NEGATIVE (NEGATIVE); BARBITURATES, UR NEGATIVE (NEGATIVE); BENZODIAZEPINES, UR NEGATIVE (NEGATIVE); BILIRUBIN, URINE NEGATIVE (negative); BLOOD/HGB, URINE NEGATIVE (Negative); BUPRENORPHINE,UR NEGATIVE (NEGATIVE); COCAINE, UR NEGATIVE (NEGATIVE); KETONE, URINE NEGATIVE (Negative); LEUK ESTERASE, URINE NEGATIVE (negative); MARIJUANA (THC), UR NEGATIVE (NEGATIVE); MDMA, UR NEGATIVE (NEGATIVE); METHADONE, UR NEGATIVE (NEGATIVE); METHAMPHETAMINE, UR NEGATIVE (NEGATIVE); NITRITE, URINE NEGATIVE (negative); OPIATES, UR NEGATIVE (NEGATIVE); OXYCODONE, UR NEGATIVE (NEGATIVE); PHENCYCLIDINE, UR NEGATIVE (NEGATIVE); TRICYCLIC ANTIDEPRESSANT, UR NEGATIVE (NEGATIVE)
[2022-10-29 18:20] LABS: ALCOHOL, MEDICAL 310 ng/dL (<3)
[2022-10-29 23:37] LABS: INFLUENZA B NAA NEGATIVE (NEGATIVE); RESPIRATORY SYNCYTIAL VIR NAA NEGATIVE (NEGATIVE)
[2022-10-30] MEDS ORDERED: CLONIDINE HCL0.1 MG PO (14:39)
[2022-10-30] MEDS ORDERED: ATIVAN0.5 MG PO (14:39)
[2022-10-30 15:00] VITALS: BP 186/104
== END 2022-10-30 15:20 | disposition home or self-care (01) ==
LOC: ED 16:54
PROVIDERS: Emergency Medicine
DX: R45.851 Suicidal ideations (principal); F10.229 Alcohol dependence with intoxication, unspecified; R00.0 Tachycardia, unspecified; R03.0 Elevated blood-pressure reading, without diagnosis of hypertension; R45.1 Restlessness and agitation; F17.200 Nicotine dependence, unspecified, uncomplicated; Z20.822 Contact with and (suspected) exposure to COVID-19; Y90.8 Blood alcohol level of 240 mg/100 ml or more; Z79.899 Other long term (current) drug therapy
CPT/HCPCS: 36415; 80053; 81003; 84443; 85025; 85060; 87502; 94640; 96365; 96366; 96375; 99285-25; C9803; G0480; J2060; J3411; J7030; U0002